=== PATIENT | male | born 1985 | race Caucasian/White ===

== ENCOUNTER → 2017-01-01 | Emergency (ER) | payer SELFPAY ==
[~2017-01-01] VITALS: Ht 175.3 cm; Wt 82.8 kg
[2017-01-01 12:30] VITALS: BP 115/82; PULSE 87; RESP 16; TEMP 98.5; O2SAT 98
[2017-01-01 13:46] LABS: CHLORIDE 104 MEQ/L (98-107); SODIUM (NA) 139 MEQ/L (136-145)
[2017-01-01 13:49] LABS: HEMATOCRIT 47.6 % (39.0-51.0); MEAN CORPUSCULAR HEMOGLOBIN 30.9 PG (27.0-34.0); MEAN CORPUSCULAR HGB CONC 34.4 % (32.0-36.0); PLATELET COUNT 179 TH/MM3 (150-450); RED BLOOD COUNT 5.29 MIL/MM3 (4.50-5.90); RED CELL DISTRIBUTION WIDTH 12.3 % (11.6-17.2); REVIEW FLAG FINAL
[2017-01-01 13:50] LABS: ANION GAP 8 MEQ/L (5-15); BLOOD UREA NITROGEN 11 MG/DL (7-18)
[2017-01-01 13:53] LABS: ALT (GPT) 43 U/L (12-78); AST (GOT) 19 U/L (15-37); GLOMERULAR FILTRATION RATE 71 ML/MIN (>89)
[2017-01-01 13:54] LABS: TOTAL BILIRUBIN ADULT 0.4 MG/DL (0.2-1.0)
[2017-01-01 13:56] LABS: ALKALINE PHOSPHATASE 57 U/L (45-117)
--- NOTE | 2017-01-05 09:19 | EP ---
cc: KAREN FORBES MD DATE: 01/01/2017 CHIEF COMPLAINT: Not feeling well. HISTORY OF PRESENT ILLNESS: This is a 31-year-old man who presents to the emergency department complaining that he has been feeling sick for the past three to four days. He states he has felt generally unwell, fatigued with slight cough. Not much congestion. He has had some diarrhea. He now states he has had periods of transient confusion. For example, he was trying to put something in the microwave instead of in the fridge. He states that he has been feeling progressively more ill and so he came to the emergency department today. No sick contacts. 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 No other recent illness or injury. He explicitly denies IV drug use. PAST MEDICAL HISTORY: No past medical history. SOCIAL HISTORY: Denies IV drug use. MEDICATIONS: None. REVIEW OF SYSTEMS: Ten systems reviewed and negative except as above. PHYSICAL EXAMINATION: GENERAL: This is a well-appearing 31-year-old man in no acute distress. VITAL SIGNS: Vital signs are stable. SKIN: No rashes. HEAD: Normocephalic and atraumatic. EYES: The sclerae are quiet and white. HEAD, EYES, EARS, NOSE, THROAT: No gross abnormalities. CARDIOVASCULAR: Warm and well-perfused. Heart is regular rate and rhythm without clicks, rubs or murmurs. PULMONARY: Normal rate and effort. LUNGS: Clear to auscultation. There are no rales, rhonchi or wheezing. ABDOMEN: The abdomen is soft, nontender and nondistended. MUSCULOSKELETAL: Normal bulk and tone. NEUROLOGIC: No facial asymmetry. Moves all extremities. Mental status normal. LABS: Influenza was negative. CBC unremarkable. Comprehensive metabolic panel was unremarkable. ASSESSMENT AND PLAN: This is a well 31-year-old man who presents to the emergency department with a variety of symptoms that center around generally not feeling well, some cough, some muscle aches, some chills and night sweats but no definite fevers without a clear etiology. The labs are reassuring. Influenza is negative. Likely influenza-like illness or viral syndrome. I do not see any evidence of meningitis. I do not see any evidence of severe bacterial infection. No risk factors such as IV drug use. At this point, I will recommend the patient drink plenty of fluids, and use [id number] analgesics as needed. ADDENDUM: As an addendum, this patient came in during a downtime and I was unable to access his chart in the typical manner, and therefore, his history and physical was dictated. MD ARTI Eaton/HORTENCIA /2:29 PM /11:41 AM
== END | disposition home or self-care (01) ==
LOC: PHED 12:26
DX: R53.83 Other fatigue (principal)
CPT/HCPCS: 80053; 85027; 87804; 99283